=== PATIENT | female | born 1985 | race Caucasian/White ===

== ENCOUNTER 2017-06-13 14:28 | Outpatient (CLI) | payer OTHER ==
--- NOTE | 2017-06-14 07:00 | Ultrasound Report ---
OB FOLLOWUP: 06/13/2017 CLINICAL INDICATION: Check size, growth. TECHNIQUE: Real-time scanning was performed with textiles sales representative static images obtained. LAST MENSTRUAL PERIOD 10/15/2016 Clinical Age 34 weeks 3 days US Age 35 weeks 3 days EFW Hadlock 2748 g EFW% Hadlock 80% Heart Rate 132 bpm EDC 07/22/2017 US EDC 07/15/2017 BPD Hadlock 34 weeks 3 days; mean mm 85.3 HC Hadlock 36 weeks 5 days; mean mm 323.9 AC Hadlock 36 weeks 4 days; mean mm 327.1 FL Hadlock 34 weeks 0 days; mean mm 66.0 Presentation Cephalic Placental Location Anterior L Cervical Length --- Amniotic Fluid --- FINDINGS: There is a single viable intrauterine gestation, in cephalic presentation. heart rate is 132 BPM. The placenta is anterior, without evidence of previa. Amniotic fluid volume is normal, with an KRUNAL of 11.7. By size, the fetus measures 35 weeks 3 days (34 weeks 3 days by initial outside sonogram). Estimated weight by Hadlock method is 2748 grams, 80th percentile. HC/AC ratio is now normal. There is no evidence of the umbilical cord wrapped around the fetus's neck on today's examination (mentioned on previous outside ultrasound at 22 weeks). No free fluid or adnexal lesion is appreciated. IMPRESSION: SINGLE VIABLE INTRAUTERINE GESTATION, WITH EXPECTED GROWTH FROM INITIAL SONOGRAM. MTDD
== END 2017-06-13 14:29 | disposition home or self-care (01) ==
LOC: DI 14:28
DX: Z36 Encounter for antenatal screening of mother (principal); Z3A.35 35 weeks gestation of pregnancy
CPT/HCPCS: 76816

== ENCOUNTER 2017-08-10 17:12 | Outpatient (CLI) | payer OTHER ==
--- NOTE | 2017-08-12 00:59 | Ultrasound Report ---
EXAM: PELVIC ULTRASOUND EXAM DATE: 08/10/2017 06:08 PM. CLINICAL HISTORY: 3 weeks . Vaginal bleeding and cramping. COMPARISON: None. TECHNIQUE: Realtime transabdominal pelvic scan performed to identify the uterus and adnexa and as an overview of other pelvic structures, with static image documentation. FINDINGS: Uterus: 10.9 x 4.0 x 6.3 cm, volume 143.1 cc. Anteverted position. Normal overall size and echotextur e. Masses: None. Endometrium: 2 mm. Small amount of fluid noted. Cervix: Unremarkable. Right Ovary: 2.6 x 1.4 x 2.2 cm, volume 4.3 cc. Normal echotexture and blood flow. Left Ovary: 2.7 x 1.7 x 2.0 cm, volume 4.8 cc. Normal echotexture and blood flow. Free Fluid: None. Other: None. IMPRESSION: Small amount of fluid noted in the endometrial canal, otherwise unremarkable pelvic ultra sound. [facility] Referring Provider Line: [phone] SITE ID: [id number]
== END 2017-08-10 17:13 | disposition home or self-care (01) ==
LOC: DI 17:12
DX: R10.2 Pelvic and perineal pain (principal)
CPT/HCPCS: 76856